=== PATIENT | female | born 1965 | race Native Hawaiian/Other Pacific Islander ===

== ENCOUNTER 2018-05-12 13:27 | Outpatient (CLI) | payer BC | END 2018-05-12 22:42 | disposition home or self-care (01) | LOC: RAD 13:27 | DX: M25.511 Pain in right shoulder (principal) ==

== ENCOUNTER 2019-08-28 08:40 | Outpatient (CLI) | payer BC | END 2019-08-28 22:02 | disposition home or self-care (01) | LOC: MAMMO 08:40 | DX: Z12.31 Encounter for screening mammogram for malignant neoplasm of breast (principal) ==

== ENCOUNTER 2021-02-09 15:25 | Outpatient (CLI) | payer BC | END 2021-02-09 22:15 | disposition home or self-care (01) | LOC: MAMMO 15:25 | PROVIDERS: ATTEND Obstetrics & Gynecology | DX: Z12.31 Encounter for screening mammogram for malignant neoplasm of breast (principal); Z13.820 Encounter for screening for osteoporosis ==

== ENCOUNTER 2021-06-21 16:06 | Outpatient (CLI) | payer BC | END 2021-06-21 23:42 | disposition home or self-care (01) | LOC: RAD 16:06 | PROVIDERS: ATTEND Physician Assistant | DX: M25.511 Pain in right shoulder (principal) ==

== ENCOUNTER 2022-03-08 08:35 | Outpatient (CLI) | payer BC | END 2022-03-08 21:24 | disposition home or self-care (01) | LOC: MAMMO 08:35 | PROVIDERS: ATTEND Obstetrics & Gynecology | DX: Z12.31 Encounter for screening mammogram for malignant neoplasm of breast (principal) ==

== ENCOUNTER 2023-03-11 08:59 | Outpatient (CLI) | payer BC | END 2023-03-11 21:09 | disposition home or self-care (01) | LOC: MAMMO 08:59 | PROVIDERS: ATTEND Obstetrics & Gynecology | DX: Z12.31 Encounter for screening mammogram for malignant neoplasm of breast (principal) ==